=== PATIENT | female | born 1970 | race Caucasian/White ===

== ENCOUNTER 2021-07-03 20:55 | Emergency (ER) | payer OTHER ==
[2021-07-03 21:25] VITALS: BP 103/72; PULSE 96; TEMP 98.7; BMI 27.3
[2021-07-03] MEDS ORDERED: IBUPROFEN 600 MG TABLET (FP) PO ONE (23:44)
== END 2021-07-04 01:44 | disposition home or self-care (01) ==
LOC: JER 20:55
DX: S82.832A Other fracture of upper and lower end of left fibula, initial encounter for closed fracture (principal); W01.0XXA Fall on same level from slipping, tripping and stumbling without subsequent striking against object, initial encounter
CPT/HCPCS: 73610-TC-LT-FY; 73630-TC-LT; 99283-25